=== PATIENT | female | born 1995 | race Caucasian/White ===

== ENCOUNTER 2021-09-22 09:34 | Outpatient (CLI) | payer BC, SELFPAY ==
--- NOTE | ~2021-09-22 | US_ITS ---
US OB limited 09/22/2021 10:39 Indication: Amniotic fluid leaking. Procedure: High-resolution Limited obstetrical ultrasound Comparison: No prior studies for comparison. Findings: There is a single living intrauterine in vertex presentation with heart rat e of 133 BPM. Placenta is located anteriorly. Amniotic fluid volume is normal. ULI measures 17.3 cm. Impression: 1: Normal ULI measures 17.3 cm. Reviewed, dictated and finalized at location A. Impression: 1: Normal ULI measures 17.3 cm.
[2021-09-22 09:58] VITALS: BP 129/81; PULSE 73
[2021-09-22 10:01] VITALS: BP 125/73; PULSE 77
[2021-09-22 10:15] VITALS: BP 127/84; PULSE 70
[2021-09-22 11:52] VITALS: BP 129/81; PULSE 92
== END 2021-09-22 12:00 | disposition home or self-care (01) ==
LOC: ANHOBOP 09:41 → ANHOBPP 09:42
PROVIDERS: Visit Provider Obstetrics & Gynecology
DX: O42.90 Premature rupture of membranes, unspecified as to length of time between rupture and onset of labor, unspecified weeks of gestation (principal); Z3A.00 Weeks of gestation of pregnancy not specified
CPT/HCPCS: 59025; 76815; 84112; 99199

== ENCOUNTER 2021-09-29 09:46 | Inpatient (IN) | payer BC, SELFPAY ==
[2021-09-29] VITALS (111 sets, daily range): BP systolic 86–144; BP diastolic 47–103; PULSE 65–154; TEMP 36.3–36.9; O2SAT 90–100; BMI 40.8
[2021-09-29 10:50] LABS: Basophils Percent Auto 0.3 % (0.2-1.2); Eosinophils Absolute Auto 0.2 K/mm3 (0-0.3); Eosinophils Percent Auto 1.7 % (0-4.4); Hematocrit 36.2 % (37.0-47.0); Hemoglobin 11.3 g/dL (12.0-15.0); Immature Granulocyte Absolute 0.09 K/mm3 (0.00-0.031); Immature Granulocyte Percent A 0.9 % (0-0.5); Lymphocytes Absolute Auto 1.25 K/mm3 (0.9-3.2); Lymphocytes Percent Auto 12.3 % (18.3-44.2); Mean Corpuscular HGB Conc 31.2 g/dl (32-36); Mean Corpuscular Hemoglobin 29.5 pg (26-34); Mean Corpuscular Volume 94.5 fl (80-100); Mean Platelet Volume 10.6 fl (7.4-10.4); Monocytes Absolute Auto 1.2 K/mm3 (0.1-0.6); Monocytes Percent Auto 11.4 % (2.6-8.5); Neutrophils Absolute Auto 7.5 K/mm3 (1.3-6.7); Neutrophils Percent Auto 73.4 % (45.5-73.1); Platelet Count Result 163 k/mm3 (150-375); Red Blood Count 3.83 M/mm3 (4.2-5.4); Red Cell Distribution Width 20.7 % (11.5-14.5); White Blood Count 10.2 K/mm3 (4.5-10.0)
[2021-09-29 10:52] LABS: Appearance Urine Clear (Clear); Bilirubin Urine Negative (Negative); Blood Urine Negative (Negative); Color Urine Yellow (Yellow); Glucose Urine UA Negative (Negative); Ketones Urine Negative (Negative); Leukocyte Esterase Ur Trace LEU/UL (Negative); Nitrate Urine Negative (Negative); Protein Urine Negative (Negative); Urobilinogen Urine 0.2 mg/dL (<2.0); pH Urine 6.5 (5.0-9.0)
[2021-09-29 11:00] LABS: Alanine Aminotransferase 25 U/L (6-35); Albumin Level 3.1 g/dL (3.5-5.1); Alkaline Phosphatase 121 U/L (38-126); Anion Gap 4 mmol/L (8-16); Aspartate Amino Transferase 31 U/L (14-36); Bilirubin,Total 0.2 mg/dL (0.2-1.3); Blood Urea Nitrogen 8 mg/dL (7-17); Calcium 8.7 mg/dL (8.4-10.2); Carbon Dioxide 23 mmol/L (22-30); Chloride 109 mmol/L (98-107); Estimated Glomerular Filt Rate > 60; Glucose 79 mg/dL (65-110); Mucus Urine Rare /lpf; Potassium 4.3 mmol/L (3.4-5.0); RBC Urine 0-2 /hpf (0-2); Sodium 136 mmol/L (137-145); Squamous Epithelial Cell Urine Occasional /hpf (Few); Uric Acid 5.1 mg/dL (2.5-7.5); WBC Urine 0-3 /hpf
[2021-09-29 11:10] LABS: Creatinine Urine 114.7 mg/dL
[2021-09-29 11:27] LABS: Add Urine Microscopic? YES
[2021-09-29 11:52] LABS: Total Protein Urine Random < 5 mg/dL; Ur Ttl Prot Creatinine Ratio < 0.04 mg/mg (0-0.20)
--- NOTE | 2021-09-29 11:55 | PC.NURSE ---
Dr. Gant returned call and informed of labs and BP's. Discussed monitor tracing including variable decels with . spoke with pt over the speakerphone and decision made to go ahead and induce labor due to the variable decels at 39 1/7 wks gestation. OK to let pt eat before starting induction.
[2021-09-29] MEDS: LACTATED RINGERS 1,000 ML 125 ML IV CONT ×3 (14:08→19:35)
[2021-09-29] MEDS: OXYTOCIN 30 UNITS/NS 500 ML 30 UNITS/500 ML BAG IV CONT (14:09)
--- NOTE | 2021-09-29 14:10 | LDADM ---
This patient, Olga Lawrence, was admitted to Labor/Delivery/Recovery 106 on 09/29/21 at 09:46. Plans for labor, pain management and were discussed with patient. Patient/family oriented to hospital policies and general routines including ID bracelet, bed and alarms, visiting hours, pain management, procedures, bathroom and other care routines, personal items, smoking policy, room service/diet and guest tray routines, security routines, and visiting hours. Patient/Family are encouraged to report perceived risks to care and to ask questions if they do not understand what they are told or what they should do. See OBIX for further documentation.
--- NOTE | 2021-09-29 16:40 | WPDANESEPP ---
Anes - Eval Pre Procedure Procedure: labor epidural Date/Time: 09/29/21 16:40 Surgeon: doug Pre Op Diagnosis: Induction of Labor Patient Data Age: 26 Gender: F Height: 1.6 m Weight: 104.5 kg Last Vital Signs Temp 36.9 C 09/29/21 16:25 Pulse 79 09/29/21 16:31 BP 139/99 H 09/29/21 16:31 O2 Del Method Room Air 09/29/21 14:10 Allergies Allergy/AdvReac Type Severity Reaction Status Date / Time Penicillins Allergy Unknown Hives Verified 09/29/21 08:38 Home Medications Medication Instructions Recorded Confirmed Type prenat.vits,ricki,[id number] 1 tablet PO DAILY 02/26/21 09/29/21 History ferrous sulfate 325 mg (65 mg 325 mg PO DAILY #90 tabs 08/24/21 09/29/21 Rx iron) tablet (Feosol) loratadine-pseudoephedrine ER 10 1 tablet PO DAILY PRN Allergy 09/07/21 09/29/21 History mg-240 mg tablet,extended Symptoms [id number] (Claritin-D 24 Hour) Laboratory Tests 09/29/21 09/29/21 09/29/21 10:38 10:38 10:38 WBC 10.2 K/mm3 H K/mm3 (4.5-10.0) RBC 3.83 M/mm3 L M/mm3 (4.2-5.4) Hgb 11.3 g/dL L g/dL (12.0-15.0) Hct 36.2 % L % (37.0-47.0) MCV 94.5 fl fl (80-100) MCH 29.5 pg pg (26-34) MCHC 31.2 g/dl L g/dl (32-36) RDW 20.7 % H % (11.5-14.5) Plt Count 163 k/mm3 k/mm3 (150-375) MPV 10.6 fl H fl (7.4-10.4) Immature Gran % (Auto) 0.9 % H % (0-0.5) Neut % (Auto) 73.4 % H % (45.5-73.1) Lymph % (Auto) 12.3 % L % (18.3-44.2) [place] % (Auto) 11.4 % H % (2.6-8.5) Eos % (Auto) 1.7 % % (0-4.4) Baso % (Auto) 0.3 % % (0.2-1.2) Lymph # (Auto) 1.25 K/mm3 K/mm3 (0.9-3.2) [place] # (Auto) 1.2 K/mm3 H K/mm3 (0.1-0.6) Eos # (Auto) 0.2 K/mm3 K/mm3 (0-0.3) Baso # (Auto) 0.0 K/mm3 K/mm3 (0.0-0.1) Abs Immat Gran (auto) 0.09 K/mm3 H K/mm3 (0.00-0.031) Absolute Neuts (auto) 7.5 K/mm3 H K/mm3 (1.3-6.7) Absolute Nucleated RBC 0.0 K/mm3 K/mm3 (0.0-0.012) Nucleated RBC % 0.0 % % (0.0-0.2) Sodium 136 mmol/L L mmol/L (137-145) Potassium 4.3 mmol/L mmol/L (3.4-5.0) Chloride 109 mmol/L H mmol/L (98-107) Carbon Dioxide 23 mmol/L mmol/L (22-30) Anion Gap 4 mmol/L L mmol/L (8-16) BUN 8 mg/dL mg/dL (7-17) Creatinine 0.60 mg/dL L mg/dL (0.7-1.0) Estim Creat Clear Calc Not Reportable Estimated GFR > 60 (59 - ) Glucose 79 mg/dL mg/dL (65-110) Uric Acid 5.1 mg/dL mg/dL (2.5-7.5) Calcium 8.7 mg/dL mg/dL (8.4-10.2) Total Bilirubin 0.2 mg/dL mg/dL (0.2-1.3) AST 31 U/L U/L (14-36) ALT 25 U/L U/L (6-35) Alkaline Phosphatase 121 U/L U/L (38-126) Total Protein 6.0 g/dL L g/dL (6.3-8.2) Albumin 3.1 g/dL L g/dL (3.5-5.1) Urine Color Urine Appearance Urine pH Ur Specific [place] Urine Protein Urine Glucose (UA) Urine Ketones Ur Blood (Man) Urine Nitrate Urine Bilirubin Urine Urobilinogen Leukocyte Esterase Rfl Urine RBC Urine WBC Ur Squamous Epith Cells Urine Mucus U Random Total Protein < 5 mg/dL mg/dL Urine Creatinine 114.7 mg/dL mg/dL Protein/Creat Ratio 2 < 0.04 mg/mg mg/mg (0-0.20) RPR Blood Type Antibody Screen 09/29/21 09/29/21 09/29/21 10:38 13:50 13:50 WBC RBC Hgb Hct MCV MCH MCHC RDW Plt Count MPV Immature Gran % (Auto) Neut % (Auto)
[2021-09-29] MEDS: ONDANSETRON INJ 4 MG/2 ML VIAL IV PUSH (17:03)
[2021-09-29] MEDS: SODIUM CHLORIDE 0.9% IV 300 ML 600 ML I-UTERINE (20:50)
--- NOTE | 2021-09-29 23:42 | PM.OBPRVD ---
OB - Delivery Note Procedure Delivery date: 09/29/21 Intrapartal Events: Other (mild shoulder dystocia relieved with suprapubic and modified nicole lasting about 20 sec) Induction method: Per Pitocin Protocol Delivery augmentation: Rupture of Membranes (clear) Delivery monitor: External FHT and Internal Uterine Route of delivery: Indication for instrumentation: other (decelerations) Episiotomy description: Left Mediolateral Delivery repair: vicryl (3.0 vicryl) Specimen: No Quantitative Blood Loss (ml): 300 Anesthesia type: Epidural Disposition: Floor Narrative: She was admitted to and D for medical induction of labor. Cervix 2/70/-2. She was started on Pitocin. She started having contractions. She has AROM clear at approximately 1600. As she progressed in labor the fluid did turn meconium stained. She did have repetitive variables and an IUPC placed and amnioinfusion. The decelerations improved. She dilated to complete and delivered a female over a left ML episiotomy performed due to moderate to severe decelerations. Nuchal cord x 2 manually reduced. nose mouth suctioned at perineum. handed to nursery staff after a bandelero cord was reduced. Peds available due to meconium. Placenta delivered spontaneously with trailing membranes, a questionable piece missing on reviewing the placenta and the uterine cavity was manually swept and small cotyledon and membranes retrieved. Good uterine tone noted. MLE repaired with 3.0 vicryl. Patient tolerated procedue well. Baby Weeks of gestation at delivery: 39 gender: Female Weight (pounds): 7 Weight (ounces): 10 presentation: vertex position: Right Occiput Anterior Placenta delivery description: Spontaneous (trailing membranes, URSULA swept and membranes and small placental fragment obtained, uterine tone good) Cord Vessel Description: Nuchal Cord (x2) and Around Body score one minute: 7 score five minutes: 9 AMG Delivery Billing Delivery Delivery: Delivery Charge
--- NOTE | 2021-09-29 23:49 | PM.IMHP ---
H&P: HPI History of Present Illness Date/Time: 09/29/21 23:49 Chief Complaint: Induction of labor Narrative: Patient at 39 1/7 weeks by LMP 12/29/2020 consistent with 7 week ultrasound. PNC uncomplicated. She had her routine OB visit today and she had an elevated blood pressure at office visit and sent for evaluation. This was her first elevated blood pressure. Blood pressures on L and D normal, and PIH labs normal. There were nonrepetitive variables present. Overall tracing reassuring. She was given option of social induction. She opted for induction of labor. Discussed previously risk benefit of labor induction versus spontaneous labor. Review of Systems Review of Systems: All systems reviewed & are unremarkable except as noted in HPI and below Constitutional: Constitutional: Reports no additional constitutional complaints and Denies headache(s) Eyes: Eyes: Denies spots in vision ENT: Reports system reviewed and no additional complaints, except as documented and Denies headache(s) Cardiovascular: Cardiovascular: Denies chest pain and Denies dyspnea Respiratory: Respiratory: Denies dyspnea Gastrointestinal: Gastrointestinal: Reports no additional gastrointestinal complaints Genitourinary: Genitourinary: Reports amenorrhea Musculoskeletal: Musculoskeletal: Reports no additional musculoskeletal complaints Integumentary/Breasts: Skin/Breast: Denies breast mass and Denies rash Neurologic: Denies headache(s) Psychiatric: Psychiatric: Reports no additional psychiatric complaints [facility] Past Medical History Medical History Spotting during in first trimester Family History Family History Grandparent Family history of elevated blood lipids Family history of malignant neoplasm of breast Hypertension Mother Family history of elevated blood lipids Family history of skin conditions Hypertension Father Family history of hyperthyroidism Sibling Family history of hyperthyroidism Diabetes mellitus Grandparent Breast cancer Hypertension Social History Social History Smoking status: Never smoker Second hand tobacco smoke exposure: No Alcohol intake: never Substance use: never Spiritual care concerns: No Meds Home Medications and Allergies Home Medications Medication Instructions Recorded Confirmed Type prenat.vits,ricki,zfg-[id number] 1 tablet PO DAILY 02/26/21 09/29/21 History ferrous sulfate 325 mg (65 mg 325 mg PO DAILY #90 tabs 08/24/21 09/29/21 Rx iron) tablet (Feosol) loratadine-pseudoephedrine ER 10 1 tablet PO DAILY PRN Allergy 09/07/21 09/29/21 History mg-240 mg tablet,extended Symptoms [id number] (Claritin-D 24 Hour) Allergies Allergy/AdvReac Type Severity Reaction Status Date / Time Penicillins Allergy Unknown Hives Verified 09/29/21 08:38 Vital Signs Vital Signs - 24 hr 09/29/21 10:30 09/29/21 10:45 09/29/21 11:00 Temperature Pulse Rate 78 75 78 Blood Pressure 115/67 121/75 123/76 Pulse Oximetry Oxygen Delivery 09/29/21 11:15 09/29/21 11:30 09/29/21 11:45 Temperature Pulse Rate 66 76 75 Blood Pressure 113/77 126/81 120/76 Pulse Oximetry Oxygen Delivery 09/29/21 14:04 09/29/21 14:31 09/29/21 15:01 Temperature Pulse Rate 87 95 80 Blood Pressure 131/94 H 131/83 130/77 Pulse Oximetry Oxygen Delivery 09/29/21 15:31 09/29/21 16:01 09/29/21 16:25 Temperature 98.4 F Pulse Rate 73 79 Blood Pressure 119/79 120/87 Pulse Oximetry Oxygen Delivery 09/29/21 16:31 09/29/21 17:03 09/29/21 17:13 Temperature 97.7 F Pulse Rate 79 86 Blood Pressure 139/99 H 138/82 Pulse Oximetry Oxygen Delivery 09/29/21 17:31 09/29/21 14:00 09/29/21 18:01 Temperature 97.8 F 97.8 F Pulse Rate 87 Blood Pressure 132/74 Pul
[2021-09-30] VITALS (12 sets, daily range): BP systolic 111–152; BP diastolic 52–124; PULSE 74–177; RESP 16–18; TEMP 36.4–37; O2SAT 97–100
[2021-09-30] MEDS: WITCH HAZEL 40 PADS 1 PAD TOPICAL (01:48)
[2021-09-30] MEDS: BENZOCAINE 20% AER SPR (*SP) 56 GM CAN 1 SPRAY TOPICAL (01:48)
--- NOTE | 2021-09-30 01:58 | OBPPTRN ---
Patient transferred to post room #280 via wheelchair. Support person, Bang, present. Oriented to unit, room, information board, rooming in, admission packet and security measures. Patient verbalizes understanding.
[2021-09-30] MEDS: IBUPROFEN 600 MG TABLET PO ×3 (03:26→19:55)
[2021-09-30 05:11] LABS: Hematocrit 32.2 % (37.0-47.0); Hemoglobin 10.2 g/dL (12.0-15.0)
--- NOTE | 2021-09-30 07:57 | WPDANLDPN2 ---
Anes-Prog Note L&D Date/Time: 09/30/21 07:57 Comfortable throughout: labor and delivery Neuraxial method: epidural Epidural/Spinal procedure site: clean & non-tender Neuro status: Neuro function grossly intact. Cardiovascular status: normal Respiratory status: normal Airway patency: baseline Mental status: baseline Post-Op hydration status: normal Vital Signs: Last Vital Signs Temp 97.9 F 09/30/21 02:00 Pulse 98 09/30/21 02:00 Resp 16 09/30/21 02:00 BP 129/80 09/30/21 02:00 Pulse Ox 97 09/30/21 02:00 O2 Del Method Room Air 09/30/21 02:00 Pain score (VAS): 0/10 I/O: Intake & Output 09/29/21 09/29/21 09/30/21 15:59 23:59 07:59 Intake Total 2500 1000 Output Total 300 155 Balance 2200 845 Patient feedback: Patient satisfied with anesthetic care.
--- NOTE | 2021-09-30 08:39 | PM.OBPNVD ---
OB - PN: Subj Subjective Date/time seen: 09/30/21 08:39 Patient doing well. Denies significant pain. Minimal-moderate lochia. Ambulating without difficulty. Voiding well. OB - PN: Obj Data Labs CBC & Chem 7: 09/30/21 04:52 09/29/21 10:38 Labs: Laboratory Results - last 24 hr 09/29/21 09/29/21 09/29/21 10:38 10:38 10:38 WBC 10.2 H RBC 3.83 L Hgb 11.3 L Hct 36.2 L MCV 94.5 MCH 29.5 MCHC 31.2 L RDW 20.7 H Plt Count 163 MPV 10.6 H Immature Gran % (Auto) 0.9 H Neut % (Auto) 73.4 H Lymph % (Auto) 12.3 L [place] % (Auto) 11.4 H Eos % (Auto) 1.7 Baso % (Auto) 0.3 Lymph # (Auto) 1.25 [place] # (Auto) 1.2 H Eos # (Auto) 0.2 Baso # (Auto) 0.0 Abs Immat Gran (auto) 0.09 H Absolute Neuts (auto) 7.5 H Absolute Nucleated RBC 0.0 Nucleated RBC % 0.0 Sodium 136 L Potassium 4.3 Chloride 109 H Carbon Dioxide 23 Anion Gap 4 L BUN 8 Creatinine 0.60 L Estim Creat Clear Calc Not Reportable Estimated GFR > 60 Glucose 79 Uric Acid 5.1 Calcium 8.7 Total Bilirubin 0.2 AST 31 ALT 25 Alkaline Phosphatase 121 Total Protein 6.0 L Albumin 3.1 L Urine Color Urine Appearance Urine pH Ur Specific [place] Urine Protein Urine Glucose (UA) Urine Ketones Ur Blood (Man) Urine Nitrate Urine Bilirubin Urine Urobilinogen Leukocyte Esterase Rfl Urine RBC Urine WBC Ur Squamous Epith Cells Urine Mucus U Random Total Protein < 5 Urine Creatinine 114.7 Protein/Creat Ratio 2 < 0.04 Blood Type Antibody Screen 09/29/21 09/29/21 09/30/21 10:38 13:50 04:52 WBC RBC Hgb 10.2 L Hct 32.2 L MCV MCH MCHC RDW Plt Count MPV Immature Gran % (Auto) Neut % (Auto) Lymph % (Auto) [place] % (Auto) Eos % (Auto) Baso % (Auto) Lymph # (Auto) [place] # (Auto) Eos # (Auto) Baso # (Auto) Abs Immat Gran (auto) Absolute Neuts (auto) Absolute Nucleated RBC Nucleated RBC % Sodium Potassium Chloride Carbon Dioxide Anion Gap BUN Creatinine Estim Creat Clear Calc Estimated GFR Glucose Uric Acid Calcium Total Bilirubin AST ALT Alkaline Phosphatase Total Protein Albumin Urine Color Yellow Urine Appearance Clear Urine pH 6.5 Ur Specific [place] 1.020 Urine Protein Negative Urine Glucose (UA) Negative Urine Ketones Negative Ur Blood (Man) Negative Urine Nitrate Negative Urine Bilirubin Negative Urine Urobilinogen 0.2 Leukocyte Esterase Rfl Trace H Urine RBC 0-2 Urine WBC 0-3 Ur Squamous Epith Cells Occasional Urine Mucus Rare U Random Total Protein Urine Creatinine Protein/Creat Ratio 2 Blood Type O Positive Antibody Screen Negative OB - PN A/P Assessment and Plan (1) Normal spontaneous vaginal delivery: Code(s): O80 - Encounter for full-term uncomplicated delivery Status: Acute Assessment and Plan: PPD#1 continue routine care monitor vitals and symptoms anticipate dc home tomorrow Time Spent With Patient Time: Total time spent is greater than 50% in coordination of care (as documented) at patient's floor/unit and/or counseling patient: Exam Const: General: cooperative, healthy appearing, comfortable and no acute distress GI: Inspection: non-distended GI Palp: No abdominal tenderness and Yes Soft to palpation Extrem: Right lower extremity: no edema Left lower extremity: no edema Other: no calf tenderness
[2021-09-30] MEDS: DOCUSATE SODIUM 100 MG CAPSULE PO (08:59)
[2021-09-30] MEDS: MULTIVIT/MIN/PREN/FOL AC/IRON TABLET 1 TAB PO (08:59)
[2021-09-30] MEDS: ACETAMINOPHEN 325 MG TABLET 650 MG PO (08:59)
[2021-09-30 14:32] LABS: Rapid Plasma Reagin Non-Reactive (NonReactive)
--- NOTE | 2021-09-30 14:36 | PC.NURSE ---
[id number] Introductions were made, then consulted with patient to assess needs related to . Mother led the conversation with her experience feeding her so far. Mother works well with her with encouragement and education. Encouraged understanding of the benefits of skin to skin (unwrapping and placing vertically on her chest), responsive feeding and how to watch for early feeding signs, frequency of feeding on demand about every 8-12 times in 24 hours (every 2-3 hours), milk production, duration of feeding, signs of adequate intake/output and how to record on the feeding sheet. Reviewed positioning and ear, shoulder, hip alignment, supporting the breast, asymmetrical latch (off-center), and leading with the chin with a big open side gape. Infant latched optimally to the left breast in football position. Education given to mother of how to visualize suck/swallow ratios and drinking at the breast. Infant was able to maintain latch without discomfort to mother. Nipple care reviewed with optimal latch and good positioning. Reminding mother of comfort measures of healing with a warm and wet washcloth to rinse breast, then leave open to air-dry as needed. Reviewed good handwashing when or touching the breast/nipples to prevent infection. After infant detached the nipple was visualized as slightly misshaped. Encouraged training mom and baby for a deeper latch and signs of good suck/swallow ratios. Assisted mother with infant to latch to the right breast using football positioning with an improved latch. Infant needs encouragement to suck nutritively (rocking motion) instead of (piston) non-nutritive sucking. Resources used to facilitate learning were used with the visual handouts/ tool/mom and baby guide. Mother voiced understanding of responsive feedings, stimulating with skin to skin, hand expressed colostrum, touch, talking to infant to encourage if it has been 2 -3 hours since the start of the last , to call if infant does not latch or there is discomfort with . Reported to the primary RN.
[2021-10-01] MEDS: IBUPROFEN 600 MG TABLET PO (05:08)
[2021-10-01 07:55] VITALS: BP 123/82; PULSE 76; RESP 18; TEMP 36.2; O2SAT 100
--- NOTE | 2021-10-01 12:20 | P.PNOB_ITS ---
OB - PN: Subj Subjective Date/time seen: 10/01/21 0845 Patient comments: pain well controlled, tolerating diet and other (Decreasing lochia.) baby status: doing well and nursing well [place] feeding status: exclusively breast feeding OB - PN: Obj Data Labs CBC & Chem 7: 09/30/21 04:52 09/29/21 10:38 Labs: Laboratory Results - last 24 hr 09/29/21 13:50 RPR Non-reactive OB - PN A/P Assessment and Plan (1) Normal spontaneous vaginal delivery: Code(s): O80 - Encounter for full-term uncomplicated delivery Status: Acute Plan She is doing well. Will discharge home. Discharge precautions discussed. Plan day: 2 Plan: routine care Comments: Patient doing well. Time Spent With Patient Time: Total time spent is greater than 50% in coordination of care (as documented) at patient's floor/unit and/or counseling patient: Exam Psych: Affect: normal affect Other: Abd: fundus firm below umbilicus, nontender Perineum: healing Ext: nontender
--- NOTE | 2021-10-01 15:20 | PC.NURSE ---
[id number] Mother led the conversation with her experience and plan to feed her so far and her ability to independently latch infant optimally without discomfort. Reminded parents to use good handwashing technique to prevent infection. Mother is feeding appropriately for growth of and understands stimulating infant to eat if needed. has had appropriate feedings in the last 24 hours meets the outcomes for weight, output and jaundice at this time. Mother states she is confident to continue effectively her at home or when to call for assistance and denies any additional assistance or education at this time. Reinforced understanding of milk production, transition of milk, signs of adequate intake, prevention/relief of engorgement, responsive after visualizing feeding cues, the different methods of stimulating to breastfeed 2-3 hours after the start of the last feeding, community resources, medication information reviewed per [employer] and when to call a provider using the resource of the mom and baby guide/[facility] website. Mother voiced understanding of the education shared. Reported to the primary RN.
[2021-10-02 14:34] VITALS: BP 116/82; PULSE 78; RESP 20; TEMP 37.1; O2SAT 100
--- NOTE | 2021-10-26 08:11 | PM.DS ---
DS: Admitting Diagnosis Discharge Date 10/01/21 Admitting Diagnosis induction of labor DS: Discharge Diagnosis Discharge Diagnosis (1) Normal spontaneous vaginal delivery: Code(s): O80 - Encounter for full-term uncomplicated delivery Status: Acute DS: Summary Hospital Course Reason for hospitalization: medical induction of labor Hospital Course: patient was admitted for medical induction of labor she was at 39 weeks with a favorable cervix had had a spontaneous deceleration but overall tracing was reassuring she opted for induction of labor. She had Pitocin induction and had a subsequent vaginal delivery. patient did well. She was breast-feeding well. She had adequate pain control was tolerating regular diet and was ambulating well she was discharged home on day 2. Time Spent with Patient Time attestation: Total time spent providing and/or coordinating discharge services: Exam Const: General: cooperative Orientation/consciousness: oriented to person, oriented to place and oriented to time HENMT: General nose exam: Normal external nose present Eyes: General: appearance normal, both eyes and all related structures Resp: Effort & Inspection: normal respiratory effort GI: Inspection: normal to inspection Other: fundus below umbilicus nontender : External Female Exam: normal external appearance Back/Spine/Pelvis: Other: Perineum healing Skin: General skin exam: normal color Neuro: General: oriented to person, oriented to place and oriented to time Extrem: General: normal to inspection and no calf tenderness Psych: Appearance: grossly normal Mental Status: mental status grossly normal Discharge Plan Discharge Attending physician on discharge: Amauri Gant Consulting providers: Katherine Aguayo ; Beverley Mejía ; Clark Khan Discharging Clinician: Amauri Gant Anticipated Discharge Date/Time: 10/01/21 12:26 Patient Disposition: Home, Self-Care Activity: may shower, no straining and pelvic rest Diet: regular Discharge Instructions: Take daily vitamins. Take iron supplement for one month. Take Colace daily while taking iron supplement. Education: Mom and Baby Guide Given to: Mother Follow-Up: Call your delivering provider's office for an appointment to be seen in: 4 Weeks [facility]. Appointment Date/Time: October 02, 2021 at 2:30 pm What to expect at your follow-up visit: Blood Pressure Check Physical Assessment Call [phone] if you are unable to keep your appointment time. BREAST CARE: * Wear a snug supportive bra. * For engorgement discomfort: Breast Feeding: * Apply warm moist washcloths * Express milk as needed to relieve engorgement * Wear loose clothing Bottle Feeding: * May apply ice packs * For sore nipples: * Identify correct latch-on * Apply warm moist washcloths before and after nursing * Air dry nipples after nursing * May apply Lansinoh cream to nipples EPISIOTOMY/PERINEAL CARE: * Until bleeding stops, use your warren bottle after urinating * Change your pad frequently throughout the day * You may take sitz baths several times a day (fill your bathtub with warm water and soak for 20 minutes.) Do NOT bathe in the water * No tub baths until seen by your physician - You may shower ACTIVITY: * Rest as much as possible. * Do not exercise or lift anything heavier than your baby (such as laundry or other children.) * Avoid stairs or driving as much as possible. * Do not put anything into the vagina. No douching, tampons, or sexual activity until seen by physician. NOTIFY PHYSICIAN IF YOU HAVE ANY QUESTIONS OR IF ANY OF THE FOLLOWING SYMPTOMS OCCUR: * If your episiotomy or incision becomes red, swollen, or more painful than what
== END 2021-10-01 14:04 | disposition home or self-care (01) | DRG 807 ==
LOC: ANHOBOP 10:23 → ANHOBPP 10:26 → ANHOBOP 12:13 → ANHOBPP 12:13 → ANHLDR 13:19 → ANHOB2 09-30 01:58
PROVIDERS: Admitting Provider Obstetrics & Gynecology; Visit Provider Obstetrics & Gynecology
DX: O13.4 Gestational [pregnancy-induced] hypertension without significant proteinuria, complicating childbirth (principal); Z37.0 Single live birth; Z3A.39 39 weeks gestation of pregnancy; O77.0 Labor and delivery complicated by meconium in amniotic fluid; O36.8330 Maternal care for abnormalities of the fetal heart rate or rhythm, third trimester, not applicable or unspecified; O66.0 Obstructed labor due to shoulder dystocia; O69.81X0 Labor and delivery complicated by cord around neck, without compression, not applicable or unspecified
CPT/HCPCS: 36415; 80053; 81001; 82570; 84156; 84550; 85014; 85018; 85025; 86592; 86850; 86900; 86901; A9270; J2405; J2590; J2795; J7030; J7120

== ENCOUNTER 2022-06-25 15:11 | Outpatient (CLI) | payer BC, SELFPAY ==
--- NOTE | ~2022-06-25 | US_ITS ---
EXAMINATION: US pelvic complete w TV DATE: 06/25/2022 16:00 INDICATION: Irregular menstruation TECHNIQUE: Multiple transabdominal and endovaginal sonographic images of the pelvis were obtained. COMPARISON: None. FINDINGS: The uterus measures 8.0 x 5.6 x 3.9 cm. The endometrial complex measures 12 mm. The right o vary measures 3.1 x 2.2 x 2.5 cm. The left ovary measures 3.4 x 2.0 x 1.9 cm. There is normal vascula r flow in the ovaries. There is no free fluid in the pelvis. IMPRESSION: 1. No sonographic correlate for the patient's symptoms. Reviewed, dictated and finalized at location B. R PUMP OPERATOR
== END 2022-06-25 15:12 | disposition home or self-care (01) ==
PROVIDERS: PCP Physician Assistant; Visit Provider Obstetrics & Gynecology
DX: N92.6 Irregular menstruation, unspecified (principal)
CPT/HCPCS: 76830; 76856

== ENCOUNTER → 2023-03-17 14:46 | Outpatient (CLI) | payer OTHER, SELFPAY ==
--- NOTE | ~2023-03-17 | US_ITS ---
EXAMINATION: US right upper quadrant DATE: 03/17/2023 15:16 INDICATION: Right upper quadrant abdominal pain. TECHNIQUE: Multiple grayscale and Doppler ultrasound images of the abdomen were obtained. COMPARISON: None FINDINGS: The visualized portions of the head of the pancreas are normal. The liver is normal without focal lesion. There is normal flow in main portal vein. The gallbladder is normal in size and contai ns gallstones. No gallbladder wall thickening or sonographic Toro sign. The common duct is normal a nd measures 3 mm. IMPRESSION: 1. Cholelithiasis. No evidence of acute cholecystitis. Reviewed, dictated and finalized at location E. FRAME SOFTWARE DEVELOPER
--- NOTE | ~2023-03-17 | US_ITS ---
EXAMINATION: US thyroid DATE: 03/17/2023 15:17 INDICATION: Nontoxic goiter. TECHNIQUE: Multiple ultrasound images of the thyroid were obtained. COMPARISON: None. FINDINGS: The right thyroid lobe measures 4.4 x 1.5 x 1.5 cm. The left thyroid lobe measures 4.0 x 1.0 x 1.8 c m. There is normal echotexture and echogenicity throughout the thyroid gland. No discrete nodules id entified. Normal vascular flow is present. IMPRESSION: 1. Normal thyroid. Reviewed, dictated and finalized at location E. LOPMENT PLANNER IMPRESSION: 1. Normal thyroid.
== END ==
PROVIDERS: PCP Physician Assistant; Visit Provider Physician Assistant
DX: R10.11 Right upper quadrant pain (principal); E04.9 Nontoxic goiter, unspecified; K80.20 Calculus of gallbladder without cholecystitis without obstruction
CPT/HCPCS: 76536; 76705